=== PATIENT | female | born 1980 | race African-American/Black ===

== ENCOUNTER 2017-01-14 19:02 | Emergency (ER) | payer MEDICARE, OTHER ==
[~2017-01-14] VITALS: Ht 157.5 cm; Wt 72.6 kg
[~2017-01-14 19:02] MED LIST: QUET25TA
[2017-01-14 19:12] VITALS: BP 141/73
== END 2017-01-14 20:17 | disposition home or self-care (01) ==
LOC: ER 19:06
DX: B86 Scabies (principal); I10 Essential (primary) hypertension
CPT/HCPCS: 99282; A4606; Z7610

== ENCOUNTER 2017-03-07 11:37 | Emergency (ER) | payer MEDICARE, OTHER ==
[~2017-03-07] VITALS: Ht 175.3 cm; Wt 68.0 kg
[2017-03-07 11:45] VITALS: BP 126/82
--- NOTE | 2017-03-07 12:30 | NUR ---
PT REFUSED TO SIGN DISCHARGE PAPERWORK AND OBTAIN DISCHARGE VITAL SIGNS.
== END 2017-03-07 12:33 | disposition home or self-care (01) ==
LOC: ER 11:42
DX: B86 Scabies (principal); F17.200 Nicotine dependence, unspecified, uncomplicated; L30.9 Dermatitis, unspecified; I10 Essential (primary) hypertension
CPT/HCPCS: 99282; 99406; A4606; Z7610